=== PATIENT | male | born 1970 | race Two or more races ===

== ENCOUNTER 2019-04-12 05:27 | Emergency (ER) | payer SELFPAY ==
[~2019-04-12] VITALS: Ht 170.2 cm; Wt 88.5 kg
--- NOTE | 2019-04-12 05:55 | NUR ---
DR. KRAUSE AT BEDSIDE FOR MSE.
[2019-04-12] MEDS ORDERED: IV NORMAL SALINE 1000 ML BAG IV ONE (06:00)
[2019-04-12] MEDS ORDERED: KETOROLAC TROMETHAMINE 15 MG INJ IVP ONE (06:00)
[2019-04-12] MEDS ORDERED: KETOROLAC TROMETHAMINE 15 MG INJ ONE (06:05)
[2019-04-12 06:11] LABS: BASOPHILS % (AUTO) 0.5 % (0.0-2.0); EOSINOPHILS # (AUTO) 0.2 K/uL (0.0-0.7); EOSINOPHILS % (AUTO) 2.3 % (0.0-7.0); HEMATOCRIT 43.8 % (36.7-47.1); HEMOGLOBIN 14.6 g/dL (12.5-16.3); LYMPHOCYTES # (AUTO) 0.7 K/uL (20.0-40.0); MEAN CORPUSCULAR HEMOGLOBIN 30.1 uug (23.8-33.4); MEAN CORPUSCULAR HGB CONC 33 g/dL (32.5-36.3); MONOCYTES # (AUTO) 0.5 K/uL (2.0-10.0); MONOCYTES % (AUTO) 6.5 % (0.0-11.0); NEUTROPHILS # (AUTO) 5.7 K/uL (1.8-8.9); NEUTROPHILS % (AUTO) 80.7 % (38.5-71.5); PLATELET COUNT (AUTO) 163 K/uL (152-348); RED BLOOD CELL COUNT(AUTO) 4.87 MIL/uL (4.06-5.63); WHITE BLOOD COUNT (AUTO) 7.1 K/uL (3.6-10.2)
[2019-04-12 06:27] LABS: BILIRUBIN,DIRECT 0.2 mg/dL (0.0-0.2); BILIRUBIN,TOTAL 0.7 mg/dL (0.2-1.0); CREATININE 1.1 mg/dL (0.6-1.3); POTASSIUM 3.7 mmol/L (3.5-5.1); TOTAL PROTEIN, SERUM 6.7 g/dL (6.4-8.2)
--- NOTE | 2019-04-12 07:03 | NUR ---
Patient discharged to home in stable conditon. Written and verbal after care instructions given. Patient verbalizes understanding of instructions. patient left with stable gait.
[2019-04-12 07:06] VITALS: BP 114/62
== END 2019-04-12 07:06 | disposition home or self-care (01) ==
LOC: ER 05:32
DX: N20.0 Calculus of kidney (principal)
CPT/HCPCS: 36415; 74176; 80048; 80076; 83690; 85025; 96361; 96374; 99284; J1885; A4663; J7030